=== PATIENT | female | born 1970 ===

== ENCOUNTER 2018-03-23 09:52 | Day surgery (SDC) | payer MEDICAID, SELFPAY ==
[2018-03-23] MEDS ORDERED: ceFAZolin 1 gm in NS 1 GM/100 ML BAG IVPB ONE ×2 (11:41→11:45)
[2018-03-23] MEDS ORDERED: Midazolam 2 MG/2 ML VIAL ONE ×2 (11:42)
[2018-03-23] MEDS ORDERED: Lidocaine/Epinephrine 1% 1:100000 10 ML IJ ONE (11:56)
[2018-03-23] MEDS ORDERED: Iodixanol 320 MG/ML 100 ML BOTTLE IV ONE (12:12)
--- NOTE | 2018-03-23 12:20 | CP.SDSHP ---
Same Day Surgery H & P - History Proposed Procedure: Port placement Pre-Op Diagnosis: Breast cancer - Allergies Allergies: Allergies No Known Allergies Allergy (Verified 03/23/18 10:31) - Physical Exam Mental Status: Alert & Oriented x3 Neuro: WNL Heart: WNL Lungs: WNL GI: WNL - Impression Impression: Pt with breast cancer referred for port. Plan right iJV port placement. Informed consent obtaineD. Pt. Evaluated Today:Candidate for Anesthesia & Procedure: Yes (ASA 3 Malampati 3) - Date & Time Date: 03/23/18 Time: 11:45 Short Stay Discharge - Short Stay Discharge Admitting Diagnosis/Reason for Visit: PORT CATH INSERTION Disposition: HOME/ ROUTINE
--- NOTE | 2018-03-23 12:21 | PCM.SURG1 ---
Surgeon's Initial Post Op Note - Surgeon's Notes Surgeon: Enmanuel Whalen MD Pharmacists: NONE Type of Anesthesia: IV Sedation Pre-Operative Diagnosis: Breast cancer Operative Findings: Patent right IJV Post-Operative Diagnosis: Breast cancer Operation Performed: Right IJV port placement. Specimen/Specimens Removed: none Estimated Blood Loss: EBL {In ML}: 4 Blood Products Given: N/A Drains Used: No Drains Post-Op Condition: Fair Date of Surgery/Procedure: 03/23/18 Time of Surgery/Procedure: 12:20
--- NOTE | 2018-03-23 13:43 | SPECPROC ---
PROCEDURE: Date of procedure: 03/23/2018 Procedure: 1. Placement of a right IJ port catheter with ultrasound and fluoroscopic guidance, CPT 65853 2. Catheter tip confirmation with spot radiograph in the superior vena cava. Medications: The patient was sedated anesthesiologist along with monitoring, Ancef 1 gm, Lidocaine 1% w Epinephrine Fluoroscopic time: 3 seconds Radiation: 0.1 mGy Blood loss: 4 cc HISTORY: Breast cancer requiring port for chemotherapy TECHNIQUE: Following informed consent the procedure time-out, patient was placed supine on the interventional table and the right neck and chest were prepped and draped in the usual sterile fashion. Ultrasound showed a compressible right internal jugular vein. After the patient was sedated by the anesthesiologist, the skin anesthetized with 1% lidocaine with epinephrine. Under direct ultrasound guidance, the right internal jugular vein was accessed with micropuncture technique. A guidewire was then advanced under fluoroscopic guidance into the superior vena cava. An image documenting ultrasound guidance for vascular access was permanently saved. The subcutaneous tissue of patient right chest was infiltrated with 1 percent lidocaine with epinephrine. A dermatotomy was made with a 15. Scalpel. The port pocket was then created with blunt dissection using a Debbie clamp. The port pocket was flushed. A port catheter was then tunneled under the skin and out the venotomy site. The port catheter was flushed, advanced through a peel-away sheath, adjusted for length, and attached to the port. The port was placed in the port pocket and was secured with 2-0 SurgiPro sutures. The port was flushed and locked with heparin. The port pocket was then closed with absorbable 4-0 Polysorb sutures. The port pocket and the venotomy site were reprepped with ChloraPrep. Steri-Strips were then applied to the port incision also venotomy site. A sterile dressing was then applied. Final spot radiograph showed the right IJ port catheter with tip of the port catheter in the superior vena cava. A port is functional and ready for use. IMPRESSION: Placement of right IJ port catheter. The tip of the port is in the superior vena cava.
[2018-03-28 15:59] VITALS: RESP 17; O2SAT 100
== END 2018-03-23 14:58 | disposition home or self-care (01) ==
LOC: C.SPRAD 09:52
PROVIDERS: ATTEND Radiology Vascular & Interventional Radiology
DX: C50.919 Malignant neoplasm of unspecified site of unspecified female breast (principal); Z45.2 Encounter for adjustment and management of vascular access device
CPT/HCPCS: 36558; 76937; 77001; 94770; C1751; J0690; J1644; J2001; J2250; Q9967

== ENCOUNTER 2018-04-21 07:12 | Emergency (ER) | payer MEDICAID, OTHER ==
[2018-04-21 07:12] VITALS: BMI 24.2
[2018-04-21 07:23] VITALS: RESP 18; O2SAT 100
[2018-04-21] MEDS ORDERED: Sodium Chloride 0.9% 1,000 ML IV ONE (07:53)
[2018-04-21 08:03] LABS: BASO % 0.7 % (0.0-2.0); EOS % 0.8 % (0.0-4.0); HEMOGLOBIN 10.7 g/dL (11.0-16.0); LYMPH # 1.1 K/uL (1.0-4.3); MEAN CELL VOLUME 80.5 fL (81.0-99.0); MEAN CORPUSCULAR HGB CONC 33.6 g/dL (33.0-37.0); MEAN PLATELET VOLUME 8.8 fL (7.2-11.7); MONO # 0.1 K/uL (0.0-0.8); MONO % 2.2 % (0.0-10.0); NEUT # 3.9 K/uL (1.8-7.0); NEUT % 75.3 % (50.0-75.0); RBC 3.97 Mil/uL (3.80-5.20); RED CELL DISTRIBUTION WIDTH 14.7 % (11.5-14.5); WHITE BLOOD COUNT 5.1 K/uL (4.8-10.8)
[2018-04-21] MEDS ORDERED: Sodium Chloride 0.9% 1,000 ML ONE (08:03)
[2018-04-21 08:24] LABS: ALB/GLOB RATIO 1.2 (1.0-2.1); ALBUMIN 4.1 g/dL (3.5-5.0); ALT/SGPT 24 U/L (9-52); AST/SGOT 32 U/L (14-36); BLOOD UREA NITROGEN 12 mg/dL (7-17); CALCIUM 8.7 mg/dl (8.6-10.4); GFR AFRICAN-AMERICAN > 60; GFR NON-AFRICAN AMERICAN > 60
[2018-04-21] MEDS ORDERED: Dexamethasone 4 mg/1 ml IVP STA (09:50)
--- NOTE | 2018-04-21 10:06 | C.PDOC ---
History Of Present Illness 47yo female with history of breast cancer s/p mastectomy, presents to ED for evaluation of vomiting since 3 days. Patient started her first chemotherapy session was on 04/18/18. She was given Zofran but symptoms persist. She also reports episodes of diarrhea yesterday but none today. She denies any pain, fever, chest pain, SOB, cough, congestion, hematuria, dysuria, or abdominal pain. Time Seen by Provider: 04/21/18 07:34 Chief Complaint (Nursing): GI Problem History Per: Patient History/Exam Limitations: no limitations Onset/Duration Of Symptoms: Days (3) Current Symptoms Are (Timing): Still Present Additional History Per: Patient Past Medical History Reviewed: Historical Data, Nursing Documentation, Vital Signs Vital Signs: Last Vital Signs Temp 98.2 F 04/21/18 10:41 Pulse 81 04/21/18 10:41 Resp 18 04/21/18 10:41 BP 132/73 04/21/18 10:41 Pulse Ox 100 04/21/18 12:15 - Medical History PMH: Gastritis, Malignancy (breast cancer) Denies: Chronic Kidney Disease Surgical History: Endoscopy Other Surgeries: mastectomy Family History: States: No Known Family Hx - Social History Hx Tobacco Use: No Hx Alcohol Use: No Hx Substance Use: No Review Of Systems Except As Marked, All Systems Reviewed And Found Negative. Constitutional: Negative for: Fever, Chills ENT: Negative for: Throat Pain Cardiovascular: Negative for: Chest Pain Respiratory: Negative for: Cough, Shortness of Breath Gastrointestinal: Positive for: Vomiting. Negative for: Abdominal Pain Genitourinary: Negative for: Frequency, Hematuria Physical Exam - Physical Exam Appears: Non-toxic, No Acute Distress Skin: Normal Color, Warm, Dry Head: Atraumatic, Normacephalic Eye(s): bilateral: Normal Inspection, EOMI Oral Mucosa: Moist Neck: Normal ROM, Supple Chest: Symmetrical, Other (port on right upper chest wall) Cardiovascular: Rhythm Regular Respiratory: Normal Breath Sounds, No Rales, No Rhonchi, No Wheezing Gastrointestinal/Abdominal: Normal Exam, Soft, No Tenderness Back: Normal Inspection Extremity: Normal ROM, No Deformity Neurological/Psych: Oriented x3 ED Course And Treatment - Laboratory Results Result Diagrams: 04/21/18 07:59 04/21/18 07:59 O2 Sat by Pulse Oximetry: 100 (RA) Pulse Ox Interpretation: Normal Progress Note: Labs ordered. Reglan and IV fluids given. On re-evaluation, patient states her nausea has improved. PO challenge ordered. On re-evaluation , patient able to tolerate juice up and states she feels better. Nausea has resovled and she has had no episodes of vomiting. Patient with steady gait, abdomen soft and nontender and heart and lung sounds are normal. Case discussed with Dr. Kaye who is requesting Decadron 4mg IV today and prescription for Decadron 4mgPO. She also instructs Pepcid. Dr. Kaye will follow up with patient in her office. Pt instructed to return to ER if symptoms persist or worsen. Disposition - Disposition Disposition: HOME/ ROUTINE Disposition Time: 10:04 Condition: STABLE Additional Instructions: Follow up with your primary medical doctor or clinic in 2-5 days for further evaluation. Take medications as prescribed. Return to the emergency department at any time if symptoms persist or worsen. Prescriptions: Dexamethasone [Decadron] 4 mg PO ONCE #1 tab Famotidine [Pepcid] 20 mg PO BID #10 tab Instructions: Nausea and Vomiting With Cancer Treatment Forms: [employer] (Estonian) - Clinical Impression Clinical Impression: Status post chemotherapy, Vomiting - PA / CANDLES POURER / Resident Statement MD/DO has reviewed & agrees with the documentation as recorded. - Scribe Statement The provider has reviewed the documentation as recorded by the Scribe (Dulce Amaral) Provider Attestation: All medical record entries made by the Scribe were at my direction and personally dictated by me. I have reviewed the chart and agree that the record accurately reflects my personal performance of the history, physical exam, medical decision making, and the department course for this patient. I have also personally directed, reviewed, and agree with the discharge instructions and disposition.
[2018-04-21] MEDS ORDERED: Dexamethasone 4 mg/1 ml ONE (10:10)
[2018-04-21 10:42] VITALS: BP 132/73; PULSE 81; TEMP 98.2
== END 2018-04-21 10:42 | disposition home or self-care (01) ==
LOC: C.ER 07:12
DX: R11.10 Vomiting, unspecified (principal); Z92.21 Personal history of antineoplastic chemotherapy
CPT/HCPCS: 80053; 85025; 96361; 96374; 99284; J1100; J7030